=== PATIENT | male | born 1965 | race African-American/Black ===

== ENCOUNTER 2018-01-01 13:20 | Inpatient (IN) | payer OTHER, SELFPAY ==
[2018-01-01 13:51] LABS: #Basophils 0.1 thou/uL (0.0-0.2); #Eosinphils 0.2 thou/uL (0.0-0.7); #Lymphocytes 2.2 thou/uL (1.20-3.40); #Monocytes 1.1 thou/uL (0.11-0.59); #Neutrophils 5.2 thou/uL (1.40-6.50); %Basophils 0.8 % (0.0-1.0); %Eosinophils 1.8 % (0.0-10.0); %Lymphocytes 25.6 % (21.0-51.0); %Monocytes 12.2 % (0.0-10.0); %Neutrophils 59.5 % (42.0-75.0); Hemoglobin 17.1 g/dL (14.0-18.0); Mean Corpuscular Hemoglobin 33.8 pg (27.0-31.0); Mean Corpuscular Volume 99.4 fl (80.0-94.0); Mean Platelet Volume 6.4 fL (7.4-10.4); Platelet Count 321 thou/uL (130-400); Red Blood Cell (RBC) Count 5.07 mill/uL (4.70-6.10); White Blood Cell (WBC) Count 8.7 thou/uL (4.8-10.8)
[2018-01-01 14:10] LABS: Bilirubin Moderate (Negative); Blood, Urine Negative (Negative); Clarity CLOUDY (Clear); Glucose, Urine (Dipstick) Negative (Negative); Leukocyte Small (Negative); Nitrite Negative (Negative); Protein, Urine (Dipstick) 30 mg/dL (Neg-Trace); Specific Gravity, Urine 1.019 (1.002-1.036); pH, Urine 5.5 (5.0-9.0)
[2018-01-01 14:19] LABS: Troponin I 0.014 ng/mL (< 0.028)
[2018-01-01 14:22] LABS: CKMB 9.8 ng/mL (0-6.6)
[2018-01-01 14:27] LABS: Bacteria/HPF 1+ HPF (None Seen); Manual Microscopic Reviewed? No Path Casts Seen; Renal Epithelial None Seen HPF (0-3); Transitional Epithelial NONE SEEN HPF (0-3)
[2018-01-01 14:54] LABS: PTT 30.7 SEC (22.9-36.1); Prothrombin Time 13.1 SEC (12.0-14.7)
--- NOTE | 2018-01-01 14:58 | RAD ---
CHEST ONE VIEW: History: Hypertension. Comparison: 01-14-17 FINDINGS: Cardiac silhouette is magnified by projection. Pulmonary vasculature is unremarkable. Mediastinum is midline. Rightward convex curvature of the thoracic spine is similar to the previous exam. There is n o lobar consolidation or evidence of pneumothorax. nuclear monitoring technician leads overlie the chest. IMPRESSION: No active cardiopulmonary abnormalities are demonstrated. POS: [facility]
[2018-01-01 15:05] LABS: Albumin 3.2 g/dL (3.5-5.0)
[2018-01-01 15:06] LABS: Chloride 105 mmol/L (98-107); Potassium 4.1 mmol/L (3.5-5.1); Sodium 136 mmol/L (136-145)
[2018-01-01 15:07] LABS: Calcium 8.4 mg/dL (7.8-10.44)
[2018-01-01 15:08] LABS: Globulin 2.3 g/dL (2.4-3.5); Glucose 96 mg/dL (70-105); Protein, Total 5.5 g/dL (6.0-8.3)
[2018-01-01 15:09] LABS: Anion Gap 13 mmol/L (10-20); Carbon Dioxide 22 mmol/L (22-29)
[2018-01-01 15:10] LABS: Bilirubin, Total 1.6 mg/dL (0.2-1.2)
[2018-01-01 15:10] LABS: Amphetamine Not Detected (NotDetected); Barbiturates Screen Not Detected (NotDetected); Benzodiazepine Screen Not Detected (NotDetected); Cocaine Metabolite Screen Detected (NotDetected); Medtox Control Line Valid? VALID (VALID); Medtox Reader # READER 4; Methadone Not Detected (NotDetected); Methamphetamine Not Detected (NotDetected); Opiate Screen Not Detected (NotDetected); Oxycodone Screen Not Detected (NotDetected); Phencyclidine (PCP) Not Detected (NotDetected); THC/Cannabinoid Screen Not Detected (NotDetected); Tricyclic Screen Not Detected (NotDetected)
[2018-01-01 15:11] LABS: Alkaline Phosphatase 60 U/L (40-150); Calc. Creatinine Clearance 0 mL/min (70-130); Estimated GFR-MDRD 34
[2018-01-01 15:12] LABS: BUN (Urea Nitrogen) 20 mg/dL (8.4-25.7)
[2018-01-01 15:13] LABS: AST (SGOT) 30 U/L (5-34)
[2018-01-01 15:14] LABS: ALT (SGPT) 17 U/L (8-55); CK (CPK) 513 U/L (30-200)
[2018-01-01] MEDS ORDERED: Ondansetron HCl/PF 4 MG/2 ML Vial ONE (15:27)
--- NOTE | 2018-01-01 15:47 | CT ---
CT BRAIN WITHOUT CONTRAST: 01/01/18 HISTORY: Blurry vision. COMPARISON: CT brain 2013. FINDINGS: No acute territorial infarct or hemorrhage. No midline shift or mass effect. Ventricular size and ext ra-axial CSF spaces are normal. Orbits are normal. Soft tissues are unremarkable. IMPRESSION: No acute intracranial abnormality. POS: OFF
[2018-01-01] MEDS ORDERED: cefTRIAXone\\ROCEPHIN 2 GM in Sodium Chloride 0.9% 100 ML IVPB SCH (17:15)
[2018-01-01] MEDS ORDERED: hydrALAZINE 20 MG/ML VIAL SLOW IVP PRN (18:21)
[2018-01-01 19:19] LABS: Creatinine, Urine 391.05 mg/dL (63-166)
[2018-01-01 20:59] LABS: Troponin I 0.016 ng/mL (< 0.028)
[2018-01-01 21:43] VITALS: BMI 25.5
--- NOTE | 2018-01-01 21:52 | ULT ---
RENAL SONOGRAM 01/01/18 HISTORY: Acute renal insufficiency. FINDINGS: Kidneys demonstrate a normal sonographic appearance bilaterally without evidence of a renal mass, akin al calculus or hydronephrosis The right kidney measures 10.7 cm x 4.4 cm with the left kidney measuring 10.4 cm x 5 cm. The urinary bladder is incompletely distended with urinary bladder volume of 11.5 mL. Urinary bladder is otherwise grossly normal in appearance for a decompressed nature. IMPRESSION: Normal appearing bilateral kidneys without evidence of hydronephrosis or renal cortical thinning. POS: [facility]
[2018-01-01] MEDS: Heparin 5,000 UNITS/ML VIAL SC SCH (21:54)
[2018-01-01] MEDS: Atorvastatin Calcium 20 MG TAB PO SCH (21:54)
[2018-01-01] MEDS: Sodium Chloride 0.9% 1,000 ML IV SCH (21:54)
[2018-01-02] MEDS: Sodium Chloride 0.9% 1,000 ML IV SCH ×4 (05:25→20:25)
[2018-01-02 05:46] LABS: Eosinophils 2 % (0-10); Lymphocytes 42 % (21-51); MDiff Complete? YES; Mean Corpuscular HGB CONC 33.3 g/dL (32.0-36.0); Mean Corpuscular Hemoglobin 33.5 pg (27.0-31.0); Monocytes 9 % (0-10); Neutrophil 47 % (42-75); Platelet Count 261 thou/uL (130-400); RBC Distribution Width 10.7 % (11.5-14.5); Red Blood Cell (RBC) Count 4.18 mill/uL (4.70-6.10); White Blood Cell (WBC) Count 6.2 thou/uL (4.8-10.8)
[2018-01-02 07:01] LABS: ALT (SGPT) 13 U/L (8-55); AST (SGOT) 22 U/L (5-34); Albumin 2.9 g/dL (3.5-5.0); Alkaline Phosphatase 57 U/L (40-150); Anion Gap 7 mmol/L (10-20); BUN (Urea Nitrogen) 12 mg/dL (8.4-25.7); Bilirubin, Total 0.8 mg/dL (0.2-1.2); Calc. Creatinine Clearance 82 mL/min (70-130); Calcium 7.9 mg/dL (7.8-10.44); Carbon Dioxide 25 mmol/L (22-29); Cardiac Risk 4.4 (Less than 4.5); Chloride 108 mmol/L (98-107); Cholesterol 135 mg/dl (< 200 Desired); Estimated GFR-MDRD 77; Glucose 95 mg/dL (70-105); HDL Cholesterol 31 mg/dL (>60 Neg Risk); LDL Cholesterol, Calculated 83 mg/dL; Protein, Total 4.9 g/dL (6.0-8.3); Sodium 136 mmol/L (136-145); Triglycerides 105 mg/dL (Less than 150)
[2018-01-02] MEDS ORDERED: FLU VACC QS2017-18 36 mo. & older 0.5 ML SYRINGE IM ONE (09:00)
[2018-01-02] MEDS: Aspirin 81 mg Enteric Coated Tablet PO SCH (10:03)
[2018-01-02] MEDS: Heparin 5,000 UNITS/ML VIAL SC SCH ×2 (10:03→21:21)
[2018-01-02 11:12] LABS: Creatinine, Urine 37.19 mg/dL (63-166); Protein, Urine Random Quant Less than 10 mg/dL
--- NOTE | 2018-01-02 12:17 | CON ---
DATE OF CONSULTATION: 01/02/2018 NEPHROLOGY CONSULTATION REASON FOR CONSULTATION: Acute kidney injury. HISTORY OF PRESENT ILLNESS: This is a very pleasant 52-year-old gentleman who presented to the [facility] with blurry vision and dizziness. The patient had poor p.o. intake. Denies any nausea, vomiting or chest pain. The patient was noted to have creatinine of more than 2 and after hydration improved . PAST MEDICAL HISTORY: Significant for hypertension and scoliosis. PAST SURGICAL HISTORY: Right knee surgery. SOCIAL HISTORY: History of alcohol abuse as well as cocaine abuse and marijuana and smoking. HOME MEDICATIONS: List reviewed. HOSPITAL MEDICATIONS: List reviewed. ALLERGIES: List reviewed. REVIEW OF SYSTEMS: A 15 point review of systems was performed and was negative except for positives noted above. GENERAL: Weakness- HEAD: Headache- NECK: No swelling or lumps. NOSE: No epistaxis or discharge. EYES: No diplopia or pain. RESPIRATORY: Dyspnea- CARDIOVASCULAR: Chest pain- GASTROINTESTINAL: Nausea- /PEST CONTROL TECHNICIAN: Hematuria- MUSCULOSKELETAL: No joint pain. NEUROPSYCHIATIC SYSTEMS: No suicidal ideation. No ideation. SKIN: Denies any rash or ulcer. CONSTITUTIONAL: No fever or chills. PHYSICAL EXAMINATION: GENERAL: Patient is awake, alert. VITAL SIGNS: Afebrile, pulse 96, breathing at 16, blood pressure 94/64. HEAD/NECK: Normocephalic. Atraumatic. EYES: EOMI. No deformity. EARS: Clear. No ulcers. NOSE: Intact. No lesions. MOUTH: Clear. No discharge. THROAT: Clear. No exudate. LUNGS: Clear. No crackles. CARDIAC: S1, S2. No rub. ABDOMEN: Benign. BS+. GENITALIA/RECTUM: Lantigua absent. BACK/EXTREMITIES: Edema 0+ Ulcer- NEUROLOGICAL: Alert and motor intact. SKIN: Rash- Bruise- LYMPHATICS: Edema- Ulcer- LABORATORY DATA: Show creatinine 2.1, now 1.3. ASSESSMENT AND RECOMMENDATIONS: 1. Acute kidney injury with chronic kidney disease due to decreased effective arterial blood volume. Continue hydration. 2. Hypertension, stable. 3. Anemia, stable. 4. Medications based on glomerular filtration rate are appropriate. No indication for dialysis. 5. Proteinuria. We will recheck random urine protein creatinine ratio.
--- NOTE | 2018-01-02 13:41 | CON ---
DATE OF CONSULTATION: 01/02/2018 CHIEF COMPLAINT: Blurred vision. HISTORY OF PRESENT ILLNESS: The patient reports he has had numbness of the left side of his arm, mostly left forearm for few weeks and he also felt some numbness in the left face for few days and he developed blurred vision, which was more like a cloudy vision bilaterally since yesterday and he was diagnosed with dehydration and renal impairment and he reports his symptoms have resolved , particularly with regards to blurred vision. He feels that the sensory deficits in the left arm, leg and face are still present at this time, mostly the arm and face. No weakness was described. PAST MEDICAL HISTORY: Positive for hypertension and scoliosis. PAST SURGICAL HISTORY: Right knee surgery. SOCIAL HISTORY: He does drink alcohol, cocaine, marijuana, and smokes. 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 FAMILY HISTORY: Negative for stroke, but positive for hypertension. MEDICATION: Prior to admission, he has not been very compliant with antihypertensives. ALLERGIES: No known drug allergies. REVIEW OF SYSTEMS: Pulmonary: Normal. Cardiac: Normal. Gastrointestinal: Normal. Genitourinary: Normal. Endocrine: Normal. Hematologic: Normal. Renal: Positive for renal impairment and dehydration. Neurological: Positive for blurred vision and numbness of left arm and face. LABORATORY DATA: His current laboratory workup, hemoglobin 14.0, hematocrit 42 , MCV 100, white count 6.2 and platelets 261. Chemistry: Sodium 136, potassium 4.0, chloride 108, bicarbonate 25, BUN 12, creatinine 1.19. At admission, creatinine was 2.41. AST 22, ALT 13 and alkaline phosphatase 57. He had elevation of CK at 513, CK-MB was 9.8 at admission, but troponin I was normal and his cholesterol was 135, triglycerides 105, LDL 83 and HDL 31. Toxicology: Positive for cocaine. IMAGING DATA: MRI of the brain, result is pending. Head CT showed no acute intracranial abnormality. PHYSICAL EXAMINATION: VITAL SIGNS: Blood pressure was 141/83, temperature 98.4, pulse 71 and O2 sats 96%. GENERAL APPEARANCE: A well-built, well-nourished man who appears comfortable. CHEST: Clear vesicular breathing. CARDIOVASCULAR: S1 and S2 heard. No murmurs. Carotids are clear. ABDOMEN: Soft and nontender. No organomegaly noted. NEUROLOGIC: Higher intellectual functions. Normal orientation to time, place and person. Appropriate conversation and cranial nerves II-XII normal except for mild facial numbness. Normal fundus examination. Normal extraocular movement. Mild facial numbness on the left side and no facial asymmetry noted. Normal hearing. Normal elevation of palate and tongue midline. No atrophy noted. MOTOR: Bulk normal, tone normal. Strength 5/5 in upper and lower extremities. Muscle groups tested are deltoid, biceps, triceps, wrist extension/flexion, finger extension and flexion bilaterally. SENSORY: Normal to touch, pinprick, proprioception, vibration and temperature on the right side and also left lower extremity. In the left arm, he had decreased sensation to touch, temperature and vibration and proprioception was normal. CEREBELLAR: Normal [id number], [id number]. Gait exam was normal. IMPRESSION: The patient is a 54-year-old man who has developed blurred vision, acute renal impairment, which brought him to the hospital, but he has been having some numbness in the left arm and face for few days. His examination showed mild numbness in the left face and left arm, but rest of the neurological examination is normal. MRI brain report is pending. He has positive cocaine in his urine. Clinical diagnosis is most consistent with possible mild ischemic event; likely risk factors are hypertension, drug use with vasospasm from cocaine and dehydration. RECOMMENDATIONS: 1. I will review his MRI for any abnormalities. 2. I agree with aspirin for stroke prophylaxis. 3. Risk factor control is important for this patient, perhaps psychiatrist consultation for drug abuse related issues and I will follow up the patient with you tomorrow. ADDENDUM: MRI Brain reviewed at 7:09 PM. No evidence of ischemia. I think this is most likely related to vasospasm from cocaine, plus dehydration. No additional work up needed at this time. Thank you. JIHAN
--- NOTE | 2018-01-02 13:54 | MRI ---
MRI BRAIN WITHOUT CONTRAST: Date: 01/02/18 HISTORY: Transient ischemic attack. Hypertension with blurred vision x2 days. COMPARISON: 11/03/14. TECHNIQUE: Brain MRI is performed without intravenous Gadolinium administration. Multisequential, multiplanar im aging is performed. FINDINGS: Central arterial flow-voids are maintained. Absent restricted diffusion. Adequate aeration of the sin uses and mastoid air cells. Calvarium has a normal T1 marrow signal intensity. Midline brain parenchy mal structures are unremarkable. Minimal T2 and FLAIR white matter hyperintensities due to chronic sm all vessel ischemic change. No parenchymal mass, mass effect, or midline shift. Brain volume is age-a ppropriate. Cortical bucio-white matter differentiation is preserved. Ventricles and sulci are patent and symmetric. IMPRESSION: 1. No acute intracranial process. 2. Absent restricted diffusion. No acute infarct. POS: [facility]
--- NOTE | 2018-01-02 17:21 | PDOC.PN ---
- Subjective Encounter Start Date: 01/02/18 Encounter Start Time: 11:00 Subjective: nsg notes rev, kimberly ovn, SO at bedside, eating breakfast. no new c/o -: still has some blurry vision but overall feels better compared to yesterday - Objective Resuscitation Status: Resuscitation Status FULL:Full Resuscitation Vital Signs & Weight: Vital Signs (12 hours) Temp Pulse Resp BP Pulse Ox 01/02/18 15:12 98.6 F 45 L 18 167/94 H 97 01/02/18 11:00 98.4 F 71 16 141/83 H 96 01/02/18 10:40 98.4 F 71 16 95 Weight Weight 178 lb 3.2 oz I&O: 01/01/18 01/02/18 01/03/18 06:59 06:59 06:59 Intake Total 1980 Output Total 925 Balance 1055 Result Diagrams: 01/02/18 05:01 01/02/18 05:01 Phys Exam - Physical Examination Constitutional: NAD HEENT: PERRLA, moist MMs, sclera anicteric, oral pharynx no lesions Neck: no nodes Respiratory: no wheezing, no rales, no rhonchi Cardiovascular: RRR, no significant murmur, no rub Gastrointestinal: soft, non-tender, no distention, positive bowel sounds Musculoskeletal: no edema, pulses present Neurological: moves all 4 limbs Dx/Plan - Plan * blurry vision * apprec neuro c/s * MRI results negative * will need o/p optometry f/u * risk factor modification aka BP control, cessation of tobacco, alcohol, and cocaine use * ASA ZENON * appears to be resolved * if tolerating sufficient oral hydration, t/c d/c IVF today * renal u/s unrevealing * appreciate nephrology c/s hypertension * monitor, medication if needed polysub abuse * counseling for cessation as above * pt is contemplative with a plan for cessation diet: renal activity: as ernesto Review of Systems - Review of Systems Eyes: Vision Change - Medications/Allergies Allergies/Adverse Reactions: Allergies Allergy/AdvReac Type Severity Reaction Status Date / Time No Known Allergies Allergy Verified 01/14/17 14:59 Medications: Current Medications Aspirin (Ecotrin) 81 mg PO DAILY [facility] Last Admin: 01/02/18 10:03 Dose: 81 mg Atorvastatin Calcium (Lipitor) 20 mg PO HS [facility] Last Admin: 01/01/18 21:54 Dose: 20 mg Heparin Sodium (Porcine) (Heparin) 5,000 units SC Q12HR [facility] Last Admin: 01/02/18 10:03 Dose: 5,000 units Hydralazine HCl (Apresoline) 10 mg SLOW IVP Q4H PRN PRN Reason: BP > 220/110 Sodium Chloride (Normal Saline 0.9%) 1,000 mls @ 150 mls/hr IV .Q6H40M [facility] Last Admin: 01/02/18 15:13 Dose: 1,000 mls
--- NOTE | 2018-01-02 17:45 | HP ---
CHIEF COMPLAINT: Blurred vision. HISTORY OF PRESENT ILLNESS: This is a 52-year-old male with minimal past medical history other than polysubstance abuse who presents with chief complaint of blurred vision. The patient states that he has been feeling poorly for the past 4-5 days with nonspecfic weakness accompanied by intermittent diarrhea over that timeframe as well and last had a loose bowel movement earlier today. He woke up this morning and was experiencing some blurred vision and hence proceeded to the Emergency Department. At the time of my evaluation in the emergency department, the patient has been found to have acute kidney injury. The patient denies any change in his urinary status, habits, quantity or quality over the last 3-4 days while he has been having concomitant diarrhea. Patient has received approximately 1.5 liters of normal saline while in the emergency department. Currently, states that feels that he still has a blurred vision, but otherwise is overall slightly better. REVIEW OF SYSTEMS: As per HPI. CONSTITUTIONAL: No recent fevers, chills or diaphoretic episodes. No significant weight change that the patient has noticed in the last year. HEENT: Blurred vision as described above without headache, dizziness, lightheadedness or gait abnormalities. CARDIOVASCULAR: No chest pain, no chest pressure, no left-sided arm numbness or tingling. No lower extremity swelling. RESPIRATORY: No new shortness of breath, dyspnea on exertion, cough, congestion or sinus discomfort. GASTROINTESTINAL: Diarrhea as noted above. The patient states that he has a retained appetite. No abdominal pain, no nausea, no vomiting. MUSCULOSKELETAL: No myalgias, no arthralgias, no fatigue, no malaise. Remainder of review of systems otherwise negative. PAST MEDICAL HISTORY: As per above include hypertension for which the patient has not been taking medications for "several months." PAST SURGICAL HISTORY: No prior surgical history that the patient recalls. HOME MEDICATIONS: The patient does not take any, so this is effectively none. ALLERGIES: No known drug allergies. SOCIAL HISTORY: The patient endorses intermittent alcohol use with his last drink yesterday. The patient states that he has withdrawn before, but he is not quite sure what he has withdrawn from. The patient states that he intermittently uses cocaine. Denies any use within the last 24 hours. Smokes about a half a pack a day. He is here with his fiancee at bedside. He is currently unemployed. FAMILY HISTORY: No known family history of renal disease that the patient is aware of. No known history in the family of other family members having stroke. PHYSICAL EXAMINATION: VITAL SIGNS: Temperature 98.7, heart rate 98, respirations 20, satting 97% on room air, and blood pressure 134/78. GENERAL: The patient is awake, alert, appropriate, oriented x3, appears to be a reasonable historian. He is in the hospital stretcher in no acute distress. HEENT: Slightly dry mucous membranes. Equal ocular motions are intact. Pupils are equal and reactive. No posterior oropharyngeal exudate or erythema. CARDIOVASCULAR: S1, S2. No murmurs, rubs or gallops. Pulses are 2+ bilaterally. EXTREMITIES: No pitting pedal edema. LUNGS: Respiratory grossly clear to auscultation. Reasonable air movement. No wheezes, rales or rhonchi. ABDOMEN: Positive bowel sounds. Soft, nontender to palpation. MUSCULOSKELETAL: Able to self reposition in the stretcher without difficulty. Moving all 4 extremities independently. LABORATORY DATA AND IMAGING: WBC 8.7, hemoglobin 17.1, hematocrit 50.4, platelets 221. INR 1.0. Sodium 136, potassium 4.1, chloride 105, bicarbonate 22, BUN 20, creatinine 2.41, glucose 96, calcium 8.4, total bilirubin 1.6, AST 30, ALT 17, alkaline phosphatase 60, creatinine kinase 515, CK-MB 9.8, troponin 0.014, total protein 4.5, albumin 3.2. UA is significant for 30 of protein, trace ketones, moderate bilirubin, small leukoesterase, 11-20 wbcs, 11- 20 hyaline casts. UDS is positive for cocaine. ASSESSMENT AND PLAN: 1. A 52-year-old male who presents with blurred vision and acute kidney injury. We will consult Nephrology. Suspect a prerenal component. Most likely etiology at this point in time is the possibility of volume depletion and dehydration, leading to a prerenal hypoperfusion injury. Continue with IV fluid hydration. Check urine electrolytes. Check renal ultrasound. Continue with IV fluid and recheck a BMP in the morning. 2. Blurred vision. This is the patient's chief complaint. Upon arrival, CT of the head in the emergency department has been negative for any evidence of acute intracranial abnormality. We will follow this up with an MRI, concern for transient ischemic attack. The patient does have risk factors for uncontrolled hypertension and cocaine use. 3. Hypertension. Continue to monitor. Patient is currently noncompliant with medications. We will reinitiate a regimen on discharge as indicated. 4. Polysubstance abuse. The patient has been counseled regarding specifically tobacco abuse, alcohol abuse, and illicit drug use as well. He is currently contemplative of cessatinon without a fixed plan. 5. Admit the patient inpatient to the stroke unit. FULL CODE. This was discussed with the patient and his fiancee at bedside. Thank you for asking me to care for the patient. Questions or concerns, contact me at [facility]. JIHAN
[2018-01-02] MEDS: Atorvastatin Calcium 20 MG TAB PO SCH (20:25)
[2018-01-03 04:54] LABS: ALT (SGPT) 14 U/L (8-55); AST (SGOT) 21 U/L (5-34); Alkaline Phosphatase 63 U/L (40-150); Anion Gap 8 mmol/L (10-20); BUN (Urea Nitrogen) 8 mg/dL (8.4-25.7); Bilirubin, Total 0.6 mg/dL (0.2-1.2); Calc. Creatinine Clearance 111 mL/min (70-130); Calcium 8.2 mg/dL (7.8-10.44); Carbon Dioxide 23 mmol/L (22-29); Chloride 111 mmol/L (98-107); Estimated GFR-MDRD Greater than 90; Globulin 2.3 g/dL (2.4-3.5); Glucose 97 mg/dL (70-105); Potassium 4.1 mmol/L (3.5-5.1); Protein, Total 5.3 g/dL (6.0-8.3); Sodium 138 mmol/L (136-145)
[2018-01-03] MEDS: Sodium Chloride 0.9% 1,000 ML IV SCH (06:27)
[2018-01-03] MEDS: Aspirin 81 mg Enteric Coated Tablet PO SCH (08:50)
[2018-01-03] MEDS: Heparin 5,000 UNITS/ML VIAL SC SCH (08:50)
--- NOTE | 2018-01-03 10:20 | PRG ---
DATE OF SERVICE: 01/03/2018 SUBJECTIVE: This is a 52-year-old gentleman being seen for acute kidney injury. The patient denies any nausea, vomiting, or chest pain. PHYSICAL EXAMINATION: GENERAL: Patient is awake and alert. VITAL SIGNS: Afebrile, pulse 75, respirations 16, blood pressure 151/93. GENERAL APPEARANCE AND MENTAL STATUS: Fair. HEAD/NECK: Normocephalic. Atraumatic. EYES: EOMI. No deformity. EARS: Clear. No ulcers. NOSE: Intact. No lesions. MOUTH: Clear. No discharge. THROAT: Clear. No exudate. LUNGS: Clear. No crackles. CARDIAC: S1, S2. No rub. ABDOMEN: Benign. BS+. GENITALIA/RECTUM: Lantigua absent. BACK/EXTREMITIES: Edema 0+ Ulcer-. NEUROLOGICAL: Alert and motor intact. SKIN: Rash- Bruise-. LYMPHATICS: Edema- Ulcer-. LABORATORY DATA: Creatinine is 0.88 ASSESSMENT AND RECOMMENDATIONS: 1. Acute kidney injury, resolved. 2. Hypertension, stop IV fluids. 3. Anemia, stable. 4. Medications based on glomerular filtration rate are appropriate. I will sign off on this patient. Please reconsult as needed.
[2018-01-03 11:42] VITALS: BP 175/86; TEMP 98.4
[2018-01-03] MEDS ORDERED: Lisinopril 10 MG TAB PO SCH (12:00)
--- NOTE | 2018-01-06 09:21 | DIS ---
DISCHARGE DIAGNOSES: 1. Blurry vision, not central in etiology. 2. Acute kidney injury, resolved. 3. Active polysubstance abuse. BRIEF SUMMARY OF HOSPITAL COURSE: This is a 53-year-old male with a known history of hypertension, w ho initially presented with a chief complaint of blurry vision and he was also found to have an acute kidney injury on admission. Please see the original history and physical for full details surroundi admission. The patient initially presented with a chief complaint of blurry vision. He was seen by Neurology in consultation and underwent an MRI, which was essentially negative. At the time of discharge, the elisha lopes does not have any known evidence of TIA or CVA to be contributing towards his blurry vision and is recommended for outpatient optometry followup. The patient was also noted to have a degree of ac [facility] kidney injury and Nephrology was consulted during this hospitalization as well. Renal ultrasound s were unrevealing and the patient's renal dysfunction resolved with IV hydration. The patient has known history of polysubstance abuse and was counseled for cessation. At the time of discharge, he contemplated without a plan. Remainder of the patient's chronic medical issues were stable during this hospitalization. CONSULTATIONS: 1. Nephrology. 2. Neurology. MEDICATION RECONCILIATION: Please see the EMR for full details. The patient is recommended to emily agustin on his home regimen. PATIENT'S CONDITION AT DISCHARGE: At the time of discharge, the patient is hemodynamically stable an d his hypertension had resolved. The patient is tolerating his baseline diet and activity. DISCHARGE INSTRUCTIONS: The patient is asked to follow up closely with his outpatient team including his primary care provider. The patient was also strongly recommended for an ophthalmologic outpatie nt evaluation for his continued blurry vision as well. Greater than 30 minutes were spent coordinating discharge for the patient. Thank you for asking me to care for your patient. For questions or concerns, contact me at [facility].
--- NOTE | 2018-01-24 19:19 | EKG ---
Test Reason : DIZZINESS Blood Pressure : / mmHG Vent. Rate : 101 BPM Atrial Rate : 101 BPM P-R Int : 114 ms QRS Dur : 084 ms QT Int : 342 ms P-R-T Axes : 073 026 069 degrees QTc Int : 443 ms Sinus tachycardia Right atrial enlargement Minimal voltage criteria for LVH, may be normal variant Nonspecific T wave abnormality Abnormal ECG Confirmed by KENDALL CASIANO ([id number]), photography editor LASHON TOTH ([id number]) on 01/24/2018 7:19:12 PM Referred By: Confirmed By:KENDALL CASIANO
== END 2018-01-03 12:58 | disposition home or self-care (01) | DRG 684 ==
LOC: ERS 13:20 → 2SE 16:48
PROVIDERS: ADMIT Internal Medicine; ATTEND Internal Medicine
DX: N17.9 Acute kidney failure, unspecified (principal); D64.9 Anemia, unspecified; E86.0 Dehydration; F14.90 Cocaine use, unspecified, uncomplicated; Z91.14 Patient's other noncompliance with medication regimen; F17.210 Nicotine dependence, cigarettes, uncomplicated; I12.9 Hypertensive chronic kidney disease with stage 1 through stage 4 chronic kidney disease, or unspecified chronic kidney disease; N18.9 Chronic kidney disease, unspecified
CPT/HCPCS: 36415; 70450; 70551; 71045; 76770; 80053; 80061; 80306; 81003; 81015; 82553; 82570; 84156; 84300; 84484; 85007; 85025; 85027; 85610; 85730; 87086; 87324; 87449; 90471; 90682; 93005; 94760; 96361; 96374; 96375; G0008; J0360; J0696; J1644; J2405; J7050; Q2036

== ENCOUNTER 2018-02-16 10:21 | Emergency (ER) | payer OTHER, SELFPAY ==
[2018-02-16 11:39] LABS: #Eosinphils 0.3 thou/uL (0.0-0.7); #Lymphocytes 1.6 thou/uL (1.20-3.40); #Monocytes 0.6 thou/uL (0.11-0.59); #Neutrophils 3.2 thou/uL (1.40-6.50); %Basophils 0.8 % (0.0-1.0); %Lymphocytes 27.1 % (21.0-51.0); %Monocytes 10.5 % (0.0-10.0); %Neutrophils 55.7 % (42.0-75.0); Hemoglobin 15.9 g/dL (14.0-18.0); Mean Corpuscular HGB CONC 33.3 g/dL (32.0-36.0); Mean Corpuscular Hemoglobin 31.9 pg (27.0-31.0); Mean Corpuscular Volume 96.1 fl (80.0-94.0); Platelet Count 302 thou/uL (130-400); RBC Distribution Width 11.1 % (11.5-14.5); Red Blood Cell (RBC) Count 4.99 mill/uL (4.70-6.10); White Blood Cell (WBC) Count 5.7 thou/uL (4.8-10.8)
--- NOTE | 2018-02-16 11:47 | RAD ---
FRONTAL VIEW CHEST: Comparison: 01-01-18 Indication: FINDINGS: There is dextroscoliosis of the thoracic spine which accentuates cardiomediastinal silhouette. No con solidation or effusion. No discrete pneumothorax. IMPRESSION: Stable chest. POS: [facility]
--- NOTE | 2018-02-16 11:54 | CT ---
CT BRAIN WITHOUT CONTRAST: Indication: History of syncope. Comparison: 01-01-18 FINDINGS: No acute infarct, hemorrhage, or hydrocephalus is present. The septum pellucidum and third ventricle are midline. Skull and intracranial soft tissues are unremarkable. IMPRESSION: No acute intracranial abnormality. POS: [facility]
[2018-02-16 12:01] LABS: ALT (SGPT) 21 U/L (8-55); AST (SGOT) 28 U/L (5-34); Albumin 3.9 g/dL (3.5-5.0); Alkaline Phosphatase 85 U/L (40-150); Anion Gap 12 mmol/L (10-20); BUN (Urea Nitrogen) 8 mg/dL (8.4-25.7); CK (CPK) 436 U/L (30-200); Calc. Creatinine Clearance 0 mL/min (70-130); Calcium 8.9 mg/dL (7.8-10.44); Carbon Dioxide 26 mmol/L (22-29); Chloride 103 mmol/L (98-107); Estimated GFR-MDRD 86; Globulin 3.1 g/dL (2.4-3.5); Glucose 90 mg/dL (70-105); Potassium 4.2 mmol/L (3.5-5.1); Sodium 137 mmol/L (136-145)
[2018-02-16 12:06] LABS: CKMB 5.9 ng/mL (0-6.6); Troponin I Less than 0.010 ng/mL (< 0.028)
[2018-02-16 13:30] LABS: Bilirubin Negative (Negative); Blood, Urine Negative (Negative); Clarity CLEAR (Clear); Glucose, Urine (Dipstick) Negative (Negative); Leukocyte Negative (Negative); Nitrite Negative (Negative); Protein, Urine (Dipstick) Negative (Neg-Trace); Specific Gravity, Urine 1.015 (1.002-1.036); pH, Urine 6.5 (5.0-9.0)
[2018-02-16 13:51] LABS: Amphetamine Not Detected (NotDetected); Barbiturates Screen Not Detected (NotDetected); Benzodiazepine Screen Not Detected (NotDetected); Cocaine Metabolite Screen Detected (NotDetected); Medtox Control Line Valid? VALID (VALID); Medtox Reader # READER 4; Methadone Not Detected (NotDetected); Methamphetamine Not Detected (NotDetected); Opiate Screen Not Detected (NotDetected); Oxycodone Screen Not Detected (NotDetected); Phencyclidine (PCP) Not Detected (NotDetected); THC/Cannabinoid Screen Not Detected (NotDetected); Tricyclic Screen Not Detected (NotDetected)
== END 2018-02-16 14:16 | disposition home or self-care (01) ==
LOC: ERS 10:21
DX: R55 Syncope and collapse (principal); R20.2 Paresthesia of skin; F14.10 Cocaine abuse, uncomplicated; I10 Essential (primary) hypertension; F17.210 Nicotine dependence, cigarettes, uncomplicated
CPT/HCPCS: 36415; 70450; 71045; 80053; 80306; 81003; 82553; 84484; 85025; 93005; 96360; 96361

== ENCOUNTER 2021-04-02 10:20 | Emergency (ER) | payer SELFPAY ==
[2021-04-02 11:20] LABS: #Basophils 0.1 thou/uL (0.0-0.2); #Eosinphils 0.3 thou/uL (0.0-0.7); #Lymphocytes 1.4 thou/uL (1.20-3.40); #Monocytes 0.7 thou/uL (0.11-0.59); #Neutrophils 2.4 thou/uL (1.40-6.50); %Basophils 1.5 % (0.0-1.0); %Eosinophils 5.6 % (0.0-10.0); %Lymphocytes 28.3 % (21.0-51.0); %Monocytes 14.9 % (0.0-10.0); %Neutrophils 49.7 % (42.0-75.0); Hemoglobin 16.6 g/dL (14.0-18.0); Mean Corpuscular HGB CONC 34.2 g/dL (32.0-36.0); Mean Corpuscular Hemoglobin 34.4 pg (27.0-31.0); Platelet Count 245 thou/uL (130-400); RBC Distribution Width 11.3 % (11.5-14.5); Red Blood Cell (RBC) Count 4.81 mill/uL (4.70-6.10); White Blood Cell (WBC) Count 4.8 thou/uL (4.8-10.8)
[2021-04-02 11:34] LABS: ALT (SGPT) 72 U/L (8-55); AST (SGOT) 75 U/L (5-34); Albumin 4.1 g/dL (3.5-5.0); Alkaline Phosphatase 98 U/L (40-110); Anion Gap 12 mmol/L (10-20); BUN (Urea Nitrogen) 6 mg/dL (8.4-25.7); Bilirubin, Total 1.3 mg/dL (0.2-1.2); Calc. Creatinine Clearance 0 mL/min (70-130); Calcium 8.7 mg/dL (7.8-10.44); Carbon Dioxide 27 mmol/L (22-29); Chloride 102 mmol/L (98-107); Globulin 3.6 g/dL (2.4-3.5); Glucose 104 mg/dL (70-105); Potassium 4.4 mmol/L (3.5-5.1); Protein, Total 7.7 g/dL (6.0-8.3); Sodium 137 mmol/L (136-145)
[2021-04-02] MEDS ORDERED: Hydrochlorothiazide 25 MG TAB PO SCH (12:00)
== END 2021-04-02 12:35 | disposition home or self-care (01) ==
LOC: ERS 10:20
DX: I10 Essential (primary) hypertension (principal); F17.210 Nicotine dependence, cigarettes, uncomplicated
CPT/HCPCS: 36415; 71045; 80053; 83880; 84484; 85025; 93005

== ENCOUNTER 2021-10-02 21:40 | Emergency (ER) | payer SELFPAY ==
[2021-10-02 22:30] LABS: Bilirubin Negative (Negative); Blood, Urine Negative (Negative); Clarity Clear (Clear); Glucose, Urine (Dipstick) Normal (Negative); Ketone, Urine Negative (Negative); Leukocyte Negative Leu/uL (Negative); Nitrite Negative (Negative); Protein, Urine (Dipstick) Negative (Neg-Trace); Specific Gravity, Urine 1.004 (1.002-1.036); Urobilinogen Normal mg/dL (Less than 2)
[2021-10-02] MEDS ORDERED: Ondansetron ODT 4 MG TAB ONE (23:39)
[2021-10-02 23:48] LABS: #Basophils 0.1 thou/uL (0.0-0.2); #Eosinphils 0.4 thou/uL (0.0-0.7); #Lymphocytes 2.5 thou/uL (1.20-3.40); #Monocytes 0.6 thou/uL (0.11-0.59); %Basophils 1.8 % (0.0-1.0); %Eosinophils 6.4 % (0.0-10.0); %Lymphocytes 45.4 % (21.0-51.0); %Monocytes 10.6 % (0.0-10.0); %Neutrophils 35.9 % (42.0-75.0); Hemoglobin 16.3 g/dL (14.0-18.0); Mean Corpuscular Hemoglobin 33.5 pg (27.0-31.0); Mean Corpuscular Volume 98.5 fL (78.0-98.0); Mean Platelet Volume 5.7 fL (7.4-10.4); Platelet Count 389 thou/uL (130-400); RBC Distribution Width 11.4 % (11.5-14.5); Red Blood Cell (RBC) Count 4.86 mill/uL (4.70-6.10); White Blood Cell (WBC) Count 5.5 thou/uL (4.8-10.8)
[2021-10-03 00:10] LABS: ALT (SGPT) 22 U/L (8-55); AST (SGOT) 25 U/L (5-34); Albumin 4.3 g/dL (3.5-5.0); Alkaline Phosphatase 95 U/L (40-110); Anion Gap 13 mmol/L (10-20); BUN (Urea Nitrogen) 4 mg/dL (8.4-25.7); Bilirubin, Total 0.6 mg/dL (0.2-1.2); Calc. Creatinine Clearance 0 mL/min (70-130); Calcium 9.7 mg/dL (7.8-10.44); Carbon Dioxide 25 mmol/L (22-29); Chloride 103 mmol/L (98-107); Globulin 3.8 g/dL (2.4-3.5); Glucose 135 mg/dL (70-105); Potassium 3.9 mmol/L (3.5-5.1); Protein, Total 8.1 g/dL (6.0-8.3); Sodium 137 mmol/L (136-145)
== END 2021-10-03 00:46 | disposition home or self-care (01) ==
LOC: ERS 21:40
DX: K59.00 Constipation, unspecified (principal); M41.9 Scoliosis, unspecified; F17.210 Nicotine dependence, cigarettes, uncomplicated; Z79.899 Other long term (current) drug therapy
CPT/HCPCS: 36415; 80053; 81003; 85025; 99284; J3370; Q0162